=== PATIENT | male | born 1960 | race Caucasian/White ===

== ENCOUNTER → 2017-02-11 | Outpatient (CLI) | payer BC ==
--- NOTE | 2017-02-11 10:18 | CT ---
EXAMINATION TYPE: CT sinus wo con DATE OF EXAM: 02/11/2017 9:46 AM COMPARISON: NONE HISTORY: 56-year-old male with chronic sinusitis CT DLP: 599.80 mGycm Automated exposure control for dose reduction was used. TECHNIQUE: Noncontrast axial views of the paranasal sinuses were obtained. Coronal reconstructions pe rformed. FINDINGS: There is a normal variant of torus palatini along the roof of the mouth. Trace mucosal thickening within the maxillary sinuses inferiorly with a 1.2 cm polyp or mucosal reten tion cyst along the floor of the left maxillary sinus. Otherwise, the sphenoid, ethmoid, and frontal sinuses are well pneumatized. No air-fluid level. Reactive rosina- osteogenesis is not seen. There is no destruction of the osseous delatorre of the paranasal sinuses. The osteomeatal complexes are patent. Slight rightward nasal septal deviation. The imaged brain, sella, skull base and orbits are normal in appearance. Visualized mastoid air cells and middle ear cavities are well pneumatized. Reformatted images confirm above findings. IMPRESSION: Mild chronic maxillary sinus disease with a small 1.2 cm polyp or mucosal retention cyst along the fl oor of the left maxillary sinus. Slight rightward nasal septal deviation.
== END ==
LOC: RADCTMAIN 09:21
PROVIDERS: ATTEND Family Medicine
DX: J32.9 Chronic sinusitis, unspecified (principal); J33.8 Other polyp of sinus; J34.2 Deviated nasal septum
CPT/HCPCS: 70486

== ENCOUNTER → 2018-01-12 | Outpatient (CLI) | payer BC ==
--- NOTE | 2018-01-12 14:36 | US ---
EXAMINATION TYPE: US kidneys/renal and bladder DATE OF EXAM: 01/12/2018 COMPARISON: NONE CLINICAL HISTORY: R31.9 hematuria. Gross hematuria noted by patient today. EXAM MEASUREMENTS: Right Kidney: 9.7 x 5.0 x 4.2 cm Left Kidney: 9.4 x 4.7 x 4.3 cm Post Void Residual Volume: 12.4 mL Right Kidney: No hydronephrosis or masses seen Left Kidney: No hydronephrosis or masses seen Bladder: mid left bladder wall mass (isoechoic to bladder wall) is noted = 1.9 x 1.7 x 1.5cm; interna l mass vascularity is imaged. Bilateral Jets seen: yes Normal Post Void Residual: yes IMPRESSION: Nonmobile vascular 1.9 cm mid left lateral urinary bladder wall mass highly suspicious for neoplasm. Direct visualization and percutaneous biopsy recommended. There is no hydronephrosis seen within eith er kidney.
== END | disposition home or self-care (01) ==
LOC: RADUSWWP 13:45
PROVIDERS: ATTEND Family Medicine
DX: N32.89 Other specified disorders of bladder (principal)
CPT/HCPCS: 76770

== ENCOUNTER → 2019-01-27 | Outpatient (CLI) | payer BC ==
--- NOTE | 2019-01-30 09:03 | US ---
EXAMINATION TYPE: US prostate transrectal DATE OF EXAM: 01/27/2019 COMPARISON: None CLINICAL HISTORY: R31.9 Hematuria. Patient states blood seen in sperm. Patient states having bladder cancer with surgical removal of lesion. This examination was performed using the transrectal probe. EXAM MEASUREMENTS: Gland Size: 4.3 x 4.1 x 2.7 Volume: 24.9 Predicted PSA: 3.0 Actual PSA (if available): 2.2 Hypoechoic solid appearing lesion seen in right prostate, nonvascular - 0.8 x 0.8 x 0.5 cm, central zone. Left nonvascular lesion - 1.1 x 0.7 x 0.5 cm, central zone. No distinct peripheral zone lesion s identified. IMPRESSION: 1. No evidence for suspicious lesion. 2. Central glandular cysts noted. Predicted PSA = volume x 0.12 ng/ml Calculated Volume = 0.5236 x L x W x H
== END ==
LOC: RADUSMAIN 07:47
PROVIDERS: ATTEND Family Medicine
DX: N42.89 Other specified disorders of prostate (principal); R31.9 Hematuria, unspecified
CPT/HCPCS: 76872

== ENCOUNTER → 2024-11-06 | Outpatient (CLI) | payer BC ==
--- NOTE | 2024-11-06 07:47 | US ---
EXAMINATION TYPE: US abdomen complete DATE OF EXAM: 11/06/2024 COMPARISON: 01/12/2018 CLINICAL INDICATION: Male, 64 years old with history of K76.0 US ABD FATTY LIVER; Fatty liver. histor y of liver cysts TECHNIQUE: Grayscale and color Doppler imaging of the abdomen was performed. FINDINGS: EXAM MEASUREMENTS: Liver Length: 17.0 cm Gallbladder Wall: 0.2 cm CBD: 0.4 cm, color Doppler imaging was utilized to isolate the common bile duct for measurement. Spleen: 8.1 cm Right Kidney: 9.9 x 3.7 x 4.4 cm Left Kidney: 10.3 x 5.3 x 4.3 cm Pancreas: Tail obscured by overlying bowel gas. duct =0.3cm Liver: multiple cysts, largest = 1.4 x 1.2 x 1.1cm Gallbladder: no evidence of stones Evidence for sonographic Chandler's sign: no CBD: appears wnl Spleen: wnl Right Kidney: anechoic area lower pole = 1.0 x 0.9 x 1.1cm Left Kidney: no evidence of hydronephrosis Upper IVC: wnl Abd Aorta: wnl The liver is homogenous. The intrahepatic portion of the IVC and proximal abdominal aorta are within normal limits. There is no evidence of cholelithiasis. Common bile duct is unremarkable. The visu alized portions of the pancreas are homogenous. The spleen is unremarkable. Kidneys are symmetric a nd free of hydronephrosis. No renal lesions are seen. IMPRESSION: 1. No evidence for acute process. 2. Scattered hepatic cysts. No suspicious lesions. 3. Right renal cyst. No suspicious lesions. [facility], , 11/06/2024 7:44 AM
== END | disposition home or self-care (01) ==
LOC: RADUSWWP 06:58
PROVIDERS: ATTEND Family Medicine
DX: K76.0 Fatty (change of) liver, not elsewhere classified (principal); K76.89 Other specified diseases of liver; N28.1 Cyst of kidney, acquired
CPT/HCPCS: 76700